=== PATIENT | male | born 1995 | race Hispanic/Latino ===

== ENCOUNTER 2022-01-05 08:37 | Emergency (ER) | payer SELFPAY ==
[2022-01-05] VITALS (7 sets, daily range): BP systolic 118–134; BP diastolic 65–79; PULSE 83; RESP 18; TEMP 36.4; O2SAT 99
--- NOTE | ~2022-01-05 | US_ITS ---
US scrotum doppler INDICATION: Left testicular pain TECHNIQUE: Testicular sonogram utilizing grayscale and color Doppler FINDINGS: The testes are normal in size and appearance. No focal lesions are seen. The right testes measures 4.4 x 2.1 x 2.8 cm centimeters, and the left testis measures 4.2 x 2.2 x 2.4 cm cm. There is normal vascular flow to both testes. The right and left epididymides appear normal. There is no varicocele or hydrocele. IMPRESSION: 1. NORMAL TESTICULAR ULTRASOUND. Reviewed, dictated and finalized at location B.
[2022-01-05 09:24] LABS: Basophils Percent Auto 0.5 % (0.2-1.2); Eosinophils Absolute Auto 0.1 K/mm3 (0-0.3); Hematocrit 41.2 % (42.0-52.0); Hemoglobin 13.9 g/dL (14.0-18.0); Immature Granulocyte Absolute 0.02 K/mm3 (0.00-0.031); Immature Granulocyte Percent A 0.3 % (0-0.5); Lymphocytes Absolute Auto 1.85 K/mm3 (0.9-3.2); Lymphocytes Percent Auto 28.9 % (18.3-44.2); Mean Corpuscular HGB Conc 33.7 g/dl (32-36); Mean Corpuscular Hemoglobin 32.1 pg (26-34); Mean Corpuscular Volume 95.2 fl (80-100); Mean Platelet Volume 11.3 fl (7.4-10.4); Monocytes Absolute Auto 0.5 K/mm3 (0.1-0.6); Neutrophils Absolute Auto 3.9 K/mm3 (1.3-6.7); Neutrophils Percent Auto 61.3 % (45.5-73.1); Platelet Count Result 168 k/mm3 (150-375); Red Blood Count 4.33 M/mm3 (4.6-6.20); Red Cell Distribution Width 12.4 % (11.5-14.5); White Blood Count 6.4 K/mm3 (4.5-10.0)
[2022-01-05 09:29] LABS: Add Urine Microscopic? YES; Appearance Urine Clear (Clear); Bilirubin Urine Negative (Negative); Blood Urine Negative (Negative); Color Urine Yellow (Yellow); Glucose Urine UA Negative (Negative); Ketones Urine Negative (Negative); Leukocyte Esterase Ur Negative LEU/UL (Negative); Nitrate Urine Positive (Negative); Protein Urine Negative (Negative); Urobilinogen Urine 0.2 mg/dL (<2.0); pH Urine 6.5 (5.0-9.0)
[2022-01-05 09:34] LABS: Alanine Aminotransferase 16 U/L (6-50); Albumin Level 4.9 g/dL (3.5-5.1); Alkaline Phosphatase 70 U/L (38-126); Anion Gap 9 mmol/L (8-16); Aspartate Amino Transferase 28 U/L (17-59); Bilirubin,Total 0.5 mg/dL (0.2-1.3); Blood Urea Nitrogen 9 mg/dL (9-20); Calcium 9.1 mg/dL (8.4-10.2); Carbon Dioxide 28 mmol/L (22-30); Chloride 100 mmol/L (98-107); Estimated CRCL calculation 136 ml/min; Estimated Glomerular Filt Rate > 60; Glucose 101 mg/dL (65-110); Lipase 35 U/L (23-300); Potassium 4.6 mmol/L (3.4-5.0); Sodium 137 mmol/L (137-145)
--- NOTE | 2022-01-05 09:59 | PC.NURSE ---
Call to lab to add on STI testing to urine sample.
--- NOTE | 2022-01-05 10:07 | ED.ABDPAIN ---
HPI - Abdominal Pain General Chief Complaint: Abdominal Pain Stated Complaint: nausea Time Seen by Provider: 01/05/22 09:09 Source: patient Mode of arrival: ambulatory Limitations: no limitations History of Present Illness HPI narrative: 26-year-old male with complaints of burning on urination for couple days and then this morning with left testicle pain upon urination. Patient denies fevers, body aches, chills. Patient denies back pain. Patient does endorse 1 new sexual partner without use of condoms. Patient denies penile discharge. Related Data Home Medications Medication Instructions Recorded Confirmed Azo 01/05/22 Allergies Allergy/AdvReac Type Severity Reaction Status Date / Time No Known Allergies Allergy Verified 01/05/22 08:57 Review of Systems Review of Systems: CONSTITUTIONAL: Denies fever, chills, or sweats. EYES: Denies visual changes, redness, or discharge. ENT: Denies rhinorrhea, congestion, sore throat, or otalgia. CARDIOVASCULAR: Denies chest pain, palpitations, or edema. RESPIRATORY: Denies cough or dyspnea. GASTROINTESTINAL: Denies abdominal pain, nausea, vomiting, or diarrhea. GENITOURINARY: Dysuria. Denies hematuria. SKIN: Denies rash or itching. MUSCULOSKELETAL: Denies back pain, joint pain, or myalgia. NEUROLOGIC: Denies headache, numbness, dizziness, or weakness. PSYCHIATRIC: Denies anxiety or depression. Exam Narrative: GENERAL: Well-appearing, well-nourished, and in no acute distress. HEAD: Normocephalic, atraumatic. EYES: PERRLA and EOMI. NECK: Supple. No adenopathy or masses. No carotid bruits or JVD CHEST: Clear to auscultation. No respiratory distress. No wheezes rales or rhonchi HEART: Regular rate and rhythm. No murmur heard. Normal peripheral pulses. ABDOMEN: Soft, nontender, nondistended, normal active bowel sounds. : No penile discharge. no erythema, swelling, or tenderness to testicles. EXTREMITIES: Normal range of motion. No edema. SKIN: Warm, dry, no rash. NEURO: No focal deficits. Alert and oriented x3. PSYCH: Normal mood and affect. Course Vital Signs Vital signs: Vital Signs Blood Pressure 128/77 01/05/22 08:44 Temperature 36.4 C L 01/05/22 08:49 Pulse Rate 83 05/20/22 08:49 Respiratory Rate 18 01/05/22 08:49 Blood Pressure 124/79 01/05/22 11:00 Pulse Oximetry 99 01/05/22 08:49 MDM - Abdominal Pain MDM Narrative Medical decision making narrative: HPI as noted. Patient with left testicle pain with urination. Denies urinary discharge. Urine negative for UTI but positive for nitrates. Suspect possible STI. Patient with new partner and unprotected sex. Ultrasound of testicle normal. Patient to be treated for gonorrhea and chlamydia results still pending. Differential Diagnosis Differential diagnosis: Likely calculus of kidney and other (UTI, STI) Medical Records Attestation: I reviewed the patient's medical records. Lab Data Attestation: I reviewed the patient's lab results. Result diagrams: 01/05/22 09:16 01/05/22 09:17 Labs: Lab Results 01/05/22 01/05/22 01/05/22 Range/Units 09:15 09:16 09:16 WBC 6.4 (4.5-10.0) K/mm3 RBC 4.33 L (4.6-6.20) M/mm3 Hgb 13.9 L (14.0-18.0) g/dL Hct 41.2 L (42.0-52.0) % MCV 95.2 (80-100) fl MCH 32.1 (26-34) pg MCHC 33.7 (32-36) g/dl RDW 12.4 (11.5-14.5) % Plt Count 168 (150-375) k/mm3 MPV 11.3 H (7.4-10.4) fl Immature Gran % (Auto) 0.3 (0-0.5) % Neut % (Auto) 61.3 (45.5-73.1) % Lymph % (Auto) 28.9 (18.3-44.2) % Ripley % (Auto) 7.0 (2.6-8.5) % Eos % (Auto) 2.0 (0-4.4) % Baso % (Auto) 0.5 (0.2-1.2) % Lymph # (Auto) 1.85 (0.9-3.2) K/mm3 Ripley # (Auto) 0.5 (0.1-0.6) K/mm3 Eos # (Auto) 0.1 (0-0.3) K/mm3 Baso # (Auto) 0.0 (0.0-0.1) K/mm3 Abs Immat Gran (auto) 0.02 (0.00-0.031) K/mm3 Absolute Neuts (auto) 3.9 (1.3-6.7) K/mm3 Absolute Nucleated RBC 0.0
--- NOTE | 2022-01-05 10:27 | PC.NURSE ---
Pt out of department at present time. Unable to give meds ordered.
[2022-01-05] MEDS: DOXYCYCLINE HYCLATE 100 MG TABLET PO (11:00)
--- NOTE | 2022-01-05 11:02 | PC.NURSE ---
Call to pharmacy for 2nd IV rocephin bag as current bag leaked on counter. Abx pill given po as directed.
[2022-01-05] MEDS: cefTRIAXone 2 GM in SODIUM CHLORIDE 0.9% IV 100 ML 200 ML IVPB (11:40)
== END 2022-01-05 12:45 | disposition home or self-care (01) ==
PROVIDERS: Emergency Medicine; Emergency Provider Nurse Practitioner Family
DX: R30.0 Dysuria (principal); N50.812 Left testicular pain
CPT/HCPCS: 36415; 76870; 80053; 81001; 83690; 85025; 87491; 87591; 93976; 96365; 99284; A9270; J0696

== ENCOUNTER 2022-01-13 09:13 | Emergency (ER) | payer SELFPAY ==
[2022-01-13 09:15] VITALS: BP 117/67; PULSE 64; RESP 16; TEMP 36.2; O2SAT 100
--- NOTE | 2022-01-13 09:43 | ED.MALEGU ---
HPI - Male Genitourinary General Chief complaint: Urogenital-Male Stated complaint: possible STI - pain and burning Time Seen by Provider: 01/13/22 09:23 History of Present Illness HPI Narrative: Patient is a 26-year-old male here for evaluation of a rash to his buttocks and bilateral inguinal folds for the past 3 days. The rash is pruritic and on the gluteal cleft and also in the bilateral inguinal folds. Patient was seen here last week for dysuria and left testicular pain. Testicular ultrasound was negative, UA showed nitrates. He was treated with doxycycline, was a new antibiotic for him. Patient states the rash developed on day 2 of the antibiotic use. States the dysuria and left testicle pain has improved, but is still mildly present after completing the antibiotics. Denies fevers, chills, nausea, vomiting, abdominal pain, low back pain, hematuria. No new sexual partners since last visit. Related Data Home Medications Medication Instructions Recorded Confirmed Azo 01/05/22 Allergies Allergy/AdvReac Type Severity Reaction Status Date / Time No Known Allergies Allergy Verified 01/13/22 09:27 Review of Systems Review of Systems: Gen: Denies fevers or chills Eyes: Denies eye pain or visual change ENT: Denies congestion Respiratory: Denies shortness of breath or cough CV: Denies chest pain or palpitations GI: Denies abdominal pain nausea, emesis or diarrhea : reports dysuria and testicle pain Musculoskeletal: Denies back pain or muscle pain Neuro: Denies numbness, tingling, weakness or focal weakness Skin: Reports rash. Except as documented, all other systems reviewed and negative Exam Narrative: APPEARANCE: Well appearing, no pain in distress, well-nourished. Head: normocephalic and atraumatic. EYES: PERRLA/EOMI, conjunctivae clear NOSE: No nasal drainage EARS: External ear normal in appearance THROAT: Oropharynx is clear. Mucous membranes are moist. NECK: Supple. No adenopathy, no masses. RESPIRATORY: Airway patent, respirations nonlabored. Clear to auscultation bilaterally, no rales, rhonchi, wheezing. CARDIOVASCULAR: Regular rate and rhythm without murmurs, rubs, or gallops. ABDOMINAL: Normoactive bowel sounds. Soft, nontender, nondistended. No rebound tenderness or guarding. MUSCULOSKELETAL: Extremities are warm and well-perfused. Moves all extremities well. No edema. : No pain with palpation of testicles. NEURO: Normal speech. No focal neurologic deficits. SKIN: Patient has a well-circumscribed area of pale erythema to gluteal cleft with overlying scale. Similar lesion to inguinal folds. No rash over testicles or shaft of penis. PSYCHIATRIC: Normal affect/mood. Course Vital Signs Vital signs: Vital Signs Temperature 97.2 F L 01/13/22 09:15 Pulse Rate 64 01/13/22 09:15 Respiratory Rate 16 01/13/22 09:15 Blood Pressure 117/67 01/13/22 09:15 Pulse Oximetry 100 01/13/22 09:15 Temperature 97.2 F L 01/13/22 09:15 Pulse Rate 64 01/13/22 09:15 Respiratory Rate 16 01/13/22 09:15 Blood Pressure 117/67 01/13/22 09:15 Pulse Oximetry 100 01/13/22 09:15 MDM - Male Genitourinary MDM Narrative Medical decision making narrative: 26-year-old male here for evaluation of a rash to his buttocks and inguinal folds in addition to some continued dysuria. STI testing from last week negative, ultrasound from last week negative for torsion or acute testicular process. Rash appears consistent with tinea cruris given recent antibiotic use, location, and itching in nature. Patient does have some continued mild dysuria, very low concern for prostatitis given lack of systemic symptoms, pyelonephritis given lack of back pain/CVAT, urolithiasis given no hematuria/ lack of colicky pain, cystitis given normal UA. Patient does have ketones in urine likely due to dehydration. Will treat for tinea cruris with topical antifungal, provided with number for him to establish care with a primar
[2022-01-13 11:05] LABS: Appearance Urine Clear (Clear); Bilirubin Urine Negative (Negative); Blood Urine Negative (Negative); Color Urine Yellow (Yellow); Glucose Urine UA Negative (Negative); Ketones Urine 2+ mg/dL (Negative); Leukocyte Esterase Ur Negative LEU/UL (Negative); Nitrate Urine Negative (Negative); Protein Urine Negative (Negative); Specific Grav Ur 1.025 (1.001-1.035)
[2022-01-13 11:14] LABS: Add Urine Microscopic? YES
[2022-01-13 11:21] LABS: Bacteria Urine Trace /hpf; Mucus Urine Rare /lpf; RBC Urine 0-2 /hpf (0-2); WBC Urine 0-3 /hpf
== END 2022-01-13 11:30 | disposition home or self-care (01) ==
PROVIDERS: Physician Assistant; Emergency Provider Emergency Medicine
DX: B35.6 Tinea cruris (principal)
CPT/HCPCS: 81001; 99283